=== PATIENT | female | born 1990 | race Caucasian/White ===

== ENCOUNTER 2019-07-14 18:47 | Emergency (ER) | payer OTHER ==
[~2019-07-14] VITALS: Ht 170.2 cm; Wt 59.0 kg
[~2019-07-14 18:47] MED LIST: DOXYCYCLINE; DOXYCYCLINE 10100 MG PO; KEFLEX500 MG PO; NOHOMEMEDICATIONS; PERCOCET 5-3251 EACH PO; ULTRAM 50MG TAB50 MG PO
[2019-07-14] MEDS ORDERED: VENTOLIN HFA INH8 GM INH ×2 (19:48→19:50)
[2019-07-14] MEDS ORDERED: PREDNISONE 10 M10 MG PO (19:48)
[2019-07-14] MEDS ORDERED: PROAIR HFA8.5 GM INH (19:48)
[2019-07-14] MEDS ORDERED: BENZONATATE200 MG PO (19:48)
[2019-07-14 19:55] VITALS: BP 114/62
== END 2019-07-14 19:56 | disposition home or self-care (01) ==
LOC: M.ERS 18:47
DX: J20.8 Acute bronchitis due to other specified organisms (principal); B97.89 Other viral agents as the cause of diseases classified elsewhere; F17.210 Nicotine dependence, cigarettes, uncomplicated; Z88.2 Allergy status to sulfonamides

== ENCOUNTER 2019-10-18 10:45 | Emergency (ER) | payer OTHER ==
[~2019-10-18] VITALS: Ht 170.2 cm; Wt 64.0 kg
[~2019-10-18 10:45] MED LIST changes: +BENZONATATE200 MG PO; +PREDNISONE 10 M10 MG PO; +PROAIR HFA8.5 GM INH; +VENTOLIN HFA INH8 GM INH
[2019-10-18] MEDS ORDERED: OCUFLOX5 ML OPHTHALMIC (11:21)
[2019-10-18 11:31] VITALS: BP 112/66
== END 2019-10-18 11:34 | disposition home or self-care (01) ==
LOC: M.ERS 10:45
DX: H10.33 Unspecified acute conjunctivitis, bilateral (principal); F17.210 Nicotine dependence, cigarettes, uncomplicated; Z86.14 Personal history of Methicillin resistant Staphylococcus aureus infection; Z88.2 Allergy status to sulfonamides

== ENCOUNTER 2020-12-03 11:53 | Emergency (ER) | payer OTHER, MEDICAID ==
[~2020-12-03] VITALS: Ht 170.2 cm; Wt 68.0 kg
[~2020-12-03 11:53] MED LIST changes: +OCUFLOX5 ML OPHTHALMIC
[2020-12-03] MEDS ORDERED: PRENATAL (12:06)
[2020-12-03] MEDS ORDERED: ASA81BEC PO (12:06)
[2020-12-03 12:46] LABS: ABSOLUTE BASOPHILS 0.1 thou/uL (0.0-0.2); ABSOLUTE EOSINOPHILS 0.1 thou/uL (0.0-0.7); ABSOLUTE LYMPHOCYTES 1.7 thou/uL (0.8-5.3); ABSOLUTE MONOCYTES 0.6 thou/uL (0.0-1.2); ABSOLUTE NEUTROPHILS 9.7 thou/uL (1.6-8.1); BASOPHILS 0.6 %; EOSINOPHILS 0.5 %; HEMOGLOBIN 12.6 gm/dL (12.0-15.0); MCH 29.9 pg (26.0-34.0); MCV 87.9 fL (80.0-100.0); MONOCYTES 5.1 %; MPV 8.1 fl. (7.2-11.1); NUCLEATED RBCS 0 /100WBC; PLATELET COUNT* 266 thou/uL (150-400); POLYS 79.8 %; RBC 4.21 mil/uL (4.20-5.00); RDW-CV 13.3 % (10.5-14.5); WBC 12.2 thou/uL (4.0-11.0)
[2020-12-03 12:51] LABS: URINE BILIRUBIN NEGATIVE (Negative); URINE BLOOD NEGATIVE (Negative); URINE CLARITY CLEAR; URINE COLOR YELLOW; URINE GLUCOSE-RANDOM NEGATIVE (Negative); URINE KETONES NEGATIVE (Negative); URINE LEUKOCYTES-REFLEX NEGATIVE (Negative); URINE NITRITE-REFLEX NEGATIVE (Negative); URINE PROTEIN NEGATIVE (Negative); URINE SPECIFIC GRAVITY <= 1.005 (1.005-1.030); URINE UROBILINOGEN 0.2 E.U./dl (0.2-1.0)
[2020-12-03 13:23] LABS: CREATININE 0.6 mg/dL (0.6-1.3); POTASSIUM 3.7 mmol/L (3.5-5.1)
[2020-12-03 13:25] LABS: ALBUMIN 3.5 g/dL (3.4-5.0); TOTAL BILIRUBIN 0.1 mg/dL (<0.1-1.0); TOTAL PROTEIN 7.5 g/dL (6.4-8.2)
[2020-12-03 14:21] VITALS: BP 110/75
== END 2020-12-03 14:21 | disposition home or self-care (01) ==
LOC: M.ERS 11:53
PROVIDERS: Nurse Practitioner Family
DX: O26.892 Other specified pregnancy related conditions, second trimester (principal); R10.84 Generalized abdominal pain; Z3A.16 16 weeks gestation of pregnancy; Z88.2 Allergy status to sulfonamides; W00.0XXA Fall on same level due to ice and snow, initial encounter; Y93.89 Activity, other specified; Y92.89 Other specified places as the place of occurrence of the external cause; Y99.8 Other external cause status